=== PATIENT | female | born 1985 | race Caucasian/White ===

== ENCOUNTER 2019-02-27 08:09 | Outpatient (CLI) | payer OTHER | END 2019-02-27 08:13 | disposition home or self-care (01) | LOC: RAD 08:09 | DX: I10 Essential (primary) hypertension (principal) ==

== ENCOUNTER → 2019-07-09 | Outpatient (CLI) | payer OTHER | END | disposition home or self-care (01) | LOC: RAD 15:16 | DX: M54.5 Low back pain (principal); I10 Essential (primary) hypertension; M15.0 Primary generalized (osteo)arthritis ==

== ENCOUNTER 2019-07-29 15:10 | Outpatient (CLI) | payer OTHER | END 2019-07-29 15:23 | disposition home or self-care (01) | LOC: RAD 15:10 | DX: M54.5 Low back pain (principal); M79.671 Pain in right foot; M79.672 Pain in left foot ==

== ENCOUNTER 2021-05-15 09:00 | Outpatient (CLI) | payer OTHER | END 2021-05-15 09:15 | disposition home or self-care (01) | LOC: PPH VACUNA 09:00 | PROVIDERS: ATTEND Emergency Medicine Pediatric Emergency Medicine | DX: Z23 Encounter for immunization (principal) ==